=== PATIENT | female | born 1945 | race African-American/Black ===

== ENCOUNTER 2019-11-16 14:30 | Inpatient (IN) ==
[2019-11-16 15:23] LABS: Basophils % 0.3 % (0.0-0.8); Eosinophils % 0.2 % (0.00-10.9); Hematocrit 46.4 VOL% (35.7-47.0); Hemoglobin 15.2 GM/DL (12.0-16.0); Immature Granulocytes % 1.2 %; Immature Granulocytes Absolute 0.07 #; Lymphocytes # 2.1 10*3/uL (1.4-4.0); Lymphocytes % 34.4 % (21.3-54.2); Mean Corpuscular HGB Conc 32.8 GM/DL (32-36); Mean Corpuscular Volume 94.3 FL (87-102); Mean Platelet Volume 10.9 FL (9.6-12.0); Monocytes % 9.5 % (1.7-12.7); Neutrophils % 54.4 % (38.7-73.9); Platelet Count 178 T/CUMM (130-400); Red Blood Count 4.92 MC/CUMM (3.8-5.5); Red Cell Distribution Width 12.5 % (9.3-17.3); White Blood Count 6.1 T/CUMM (4-12)
[2019-11-16 15:43] LABS: Albumin 3.5 G/DL (3.4-5.0); Bilirubin,Total 0.8 MG/DL (0.2-1.0); Calcium 9.4 MG/DL (8.5-10.1); Osmolality,Calculated 277.4 MOS/KG (273-304); Total Protein 8.6 G/DL (6.4-8.3)
[2019-11-16] MEDS ORDERED: BISACODYL 5 MG TABLET PO PRN (17:32)
[2019-11-16] MEDS ORDERED: ONDANSETRON 4 MG/2 ML VIAL IV PRN (17:32)
[2019-11-16] MEDS ORDERED: ACETAMINOPHEN 325 MG TABLET PO PRN (17:32)
[2019-11-16 17:36] LABS: Eosinophils 1 % (0-10); Lymphocytes 27 % (20-55); Platelet Estimate Normal; Segmented Neutrophils 68 % (50-85); Total Cells Counted 100
[2019-11-16 17:37] LABS: Macrocytosis Slight; Reactive Lymphocytes Few
[2019-11-16] MEDS: AZITHROMYCIN INJ 500 MG in SODIUM CHLORIDE 0.9% 250 ML IV SCH (20:28)
[2019-11-16] MEDS: cefTRIAXone 1,000 MG in SYRINGE 1 EACH IV SCH (22:10)
[2019-11-16] MEDS: ENOXAPARIN 40 MG/0.4 ML SYRINGE SUBCUT SCH (22:11)
[2019-11-17 04:21] LABS: Basophils % 0.2 % (0.0-0.8); Eosinophils % 0.2 % (0.00-10.9); Hematocrit 38.5 VOL% (35.7-47.0); Hemoglobin 12.5 GM/DL (12.0-16.0); Immature Granulocytes % 1.1 %; Immature Granulocytes Absolute 0.07 #; Mean Corpuscular HGB Conc 32.5 GM/DL (32-36); Mean Corpuscular Volume 95.1 FL (87-102); Mean Platelet Volume 11.3 FL (9.6-12.0); Neutrophils % 55.5 % (38.7-73.9); Platelet Count 167 T/CUMM (130-400); Red Blood Count 4.05 MC/CUMM (3.8-5.5); Red Cell Distribution Width 12.6 % (9.3-17.3); White Blood Count 6.3 T/CUMM (4-12)
[2019-11-17 04:53] LABS: Microcytosis 1+; Platelet Estimate Normal
[2019-11-17 05:15] LABS: Albumin 2.8 G/DL (3.4-5.0); Bilirubin,Total 0.7 MG/DL (0.2-1.0); Calcium 8.6 MG/DL (8.5-10.1); Osmolality,Calculated 281.1 MOS/KG (273-304); Total Protein 7.4 G/DL (6.4-8.3)
[2019-11-17] MEDS: OXYBUTYNIN XL 5 MG TABLET PO SCH (08:39)
[2019-11-17] MEDS: AZITHROMYCIN INJ 500 MG in SODIUM CHLORIDE 0.9% 250 ML IV SCH (08:39)
[2019-11-17] MEDS: amLODIPine 10 MG TABLET PO SCH (08:39)
[2019-11-17] MEDS: PANTOPRAZOLE 40 MG TABLET PO SCH (08:39)
[2019-11-17] MEDS: POTASSIUM CHLORIDE 20 MEQ TABLET PO PRN (16:32)
[2019-11-17] MEDS ORDERED: AZITHROMYCIN 250 MG TABLET PO ONE (21:00)
[2019-11-17] MEDS ORDERED: ZINC SULFATE 220 MG CAPSULE PO SCH (21:00)
[2019-11-17] MEDS ORDERED: HYDROXYCHLOROQUINE 200 MG TABLET PO SCH (21:00)
[2019-11-17] MEDS: ENOXAPARIN 40 MG/0.4 ML SYRINGE SUBCUT SCH (21:34)
[2019-11-17] MEDS: cefTRIAXone 1,000 MG in SYRINGE 1 EACH IV SCH (21:35)
[2019-11-17] MEDS: ALBUTEROL INHALER 8 GM INH SCH (21:48)
[2019-11-18] MEDS: ALBUTEROL INHALER 8 GM INH SCH ×4 (01:38→23:46)
[2019-11-18 06:29] LABS: Basophils % 0.2 % (0.0-0.8); Eosinophils # 0.1 10*3/uL (0.0-0.87); Eosinophils % 0.9 % (0.00-10.9); Hematocrit 36.8 VOL% (35.7-47.0); Hemoglobin 12.2 GM/DL (12.0-16.0); Immature Granulocytes % 1.5 %; Immature Granulocytes Absolute 0.08 #; Lymphocytes # 2.2 10*3/uL (1.4-4.0); Lymphocytes % 40.7 % (21.3-54.2); Mean Corpuscular HGB Conc 33.2 GM/DL (32-36); Mean Corpuscular Volume 94.4 FL (87-102); Mean Platelet Volume 11.4 FL (9.6-12.0); Monocytes % 10.2 % (1.7-12.7); Neutrophils % 46.5 % (38.7-73.9); Platelet Count 172 T/CUMM (130-400); Red Cell Distribution Width 12.4 % (9.3-17.3); White Blood Count 5.4 T/CUMM (4-12)
[2019-11-18 06:56] LABS: Calcium 8.8 MG/DL (8.5-10.1); Osmolality,Calculated 281.1 MOS/KG (273-304)
[2019-11-18 07:01] LABS: Band Neutrophils 1 % (0-10); Eosinophils 1 % (0-10); Lymphocytes 35 % (20-55); Segmented Neutrophils 56 % (50-85); Total Cells Counted 100
[2019-11-18 07:02] LABS: Hypochromasia 1+; Microcytosis Slight; Platelet Estimate Adequate
[2019-11-18 07:03] LABS: Atypical Lymphocytes Few
[2019-11-18] MEDS: AZITHROMYCIN 250 MG TABLET PO SCH (08:44)
[2019-11-18] MEDS: OXYBUTYNIN XL 5 MG TABLET PO SCH (08:44)
[2019-11-18] MEDS: POTASSIUM CHLORIDE 20 MEQ TABLET PO PRN ×4 (08:44→20:49)
[2019-11-18] MEDS: PANTOPRAZOLE 40 MG TABLET PO SCH (08:45)
[2019-11-18] MEDS: amLODIPine 10 MG TABLET PO SCH (08:45)
[2019-11-18] MEDS ORDERED: HYDROXYCHLOROQUINE 200 MG TABLET PO SCH (21:00)
[2019-11-18] MEDS: cefTRIAXone 1,000 MG in SYRINGE 1 EACH IV SCH (21:04)
[2019-11-18] MEDS: ENOXAPARIN 40 MG/0.4 ML SYRINGE SUBCUT SCH (21:04)
[2019-11-19] MEDS: ALBUTEROL INHALER 8 GM INH SCH ×3 (00:45→13:27)
[2019-11-19] MEDS: POTASSIUM CHLORIDE 20 MEQ TABLET PO PRN ×2 (02:31→07:56)
[2019-11-19 05:48] LABS: Basophils % 0.2 % (0.0-0.8); Eosinophils # 0.1 10*3/uL (0.0-0.87); Eosinophils % 1.5 % (0.00-10.9); Hematocrit 33.4 VOL% (35.7-47.0); Hemoglobin 10.7 GM/DL (12.0-16.0); Immature Granulocytes % 1.5 %; Immature Granulocytes Absolute 0.07 #; Lymphocytes # 1.8 10*3/uL (1.4-4.0); Lymphocytes % 38.2 % (21.3-54.2); Mean Platelet Volume 11.1 FL (9.6-12.0); Neutrophils % 46.6 % (38.7-73.9); Platelet Count 177 T/CUMM (130-400); Red Blood Count 3.48 MC/CUMM (3.8-5.5); Red Cell Distribution Width 12.2 % (9.3-17.3); White Blood Count 4.7 T/CUMM (4-12)
[2019-11-19 06:13] LABS: Eosinophils 1 % (0-10); Hypochromasia 1+; Lymphocytes 44 % (20-55); Ovalocytes Slight; Platelet Estimate Adequate; Segmented Neutrophils 44 % (50-85); Total Cells Counted 100
[2019-11-19 06:14] LABS: Atypical Lymphocytes Few; Microcytosis Slight
[2019-11-19 06:18] LABS: Calcium 7.1 MG/DL (8.5-10.1); Osmolality,Calculated 283.7 MOS/KG (273-304)
[2019-11-19] MEDS: PANTOPRAZOLE 40 MG TABLET PO SCH ×2 (07:55→09:25)
[2019-11-19] MEDS: AZITHROMYCIN 250 MG TABLET PO SCH ×2 (07:55→09:25)
[2019-11-19] MEDS: OXYBUTYNIN XL 5 MG TABLET PO SCH ×2 (07:55→09:25)
[2019-11-19] MEDS: amLODIPine 10 MG TABLET PO SCH ×2 (07:56→09:25)
[2019-11-19 13:33] VITALS: BP 130/70
== END 2019-11-19 15:58 | disposition home or self-care (01) | DRG 195 ==
LOC: N.ED 14:30 → SUATTDRO 17:32 → N.EDINP 17:32 → N.2E 18:50
PROVIDERS: ADMIT Internal Medicine; ATTEND Family Medicine